=== PATIENT | male | born 1950 | race Caucasian/White ===

== ENCOUNTER 2017-12-17 09:24 | Day surgery (SDC) | payer MEDICARE ==
[2017-12-16 14:25] VITALS: BMI 25.7
[2017-12-17 10:20] LABS: #Basophils 0.1 thou/uL (0.0-0.2); #Eosinphils 0.2 thou/uL (0.0-0.7); #Lymphocytes 3.2 thou/uL (1.20-3.40); #Neutrophils 10.8 thou/uL (1.40-6.50); %Basophils 0.7 % (0.0-1.0); %Eosinophils 1.1 % (0.0-10.0); %Lymphocytes 20.9 % (21.0-51.0); %Monocytes 6.6 % (0.0-10.0); %Neutrophils 70.8 % (42.0-75.0); Mean Corpuscular HGB CONC 34.6 g/dL (32.0-36.0); Mean Corpuscular Hemoglobin 35.3 pg (27.0-31.0); Mean Platelet Volume 6.3 fL (7.4-10.4); Platelet Count 292 thou/uL (130-400); RBC Distribution Width 12.2 % (11.5-14.5); Red Blood Cell (RBC) Count 4.25 mill/uL (4.70-6.10); White Blood Cell (WBC) Count 15.2 thou/uL (4.8-10.8)
[2017-12-17 10:27] LABS: INR-International Normal Ratio 1.6; PTT 33.9 SEC (22.9-36.1); Prothrombin Time 19.8 SEC (12.0-14.7)
[2017-12-17 10:33] LABS: Anion Gap 13 mmol/L (10-20); BUN (Urea Nitrogen) 25 mg/dL (8.4-25.7); Calc. Creatinine Clearance 81 mL/min (70-130); Calcium 9.3 mg/dL (7.8-10.44); Carbon Dioxide 24 mmol/L (23-31); Chloride 105 mmol/L (98-107); Estimated GFR-MDRD 70; Glucose 93 mg/dL (80-115); Potassium 4.2 mmol/L (3.5-5.1); Sodium 138 mmol/L (136-145)
[2017-12-17] MEDS ORDERED: Midazolam HCl 2 mg/2 ml Vial ONE (11:33)
[2017-12-17] MEDS ORDERED: Diprivan 20 ML ONE (11:33)
[2017-12-17] MEDS ORDERED: Propofol 200 MG/20 ML VIAL ONE (16:02)
--- NOTE | 2017-12-17 17:13 | ECHO ---
DATE OF SERVICE: 12/17/17 PREPROCEDURE: Aortic stenosis. PROCEDURES PERFORMED: Transesophageal echo. SUMMARY: A full transesophageal echo was done for evaluation of aortic stenosis. He had a transthoracic echo that showed heavily calcified aortic valve with minimal opening, but hemodynamic measurements were no t suggestive of severe stenosis, so due to the discrepancy of the findings, a transesophageal echo wa s programmed. Sedation was achieved by the Anesthesia Department. Please see their notes for detail s). After adequate sedation was achieved, transesophageal probe was inserted into the mouth into the esophagus with no issues whatsoever. We then obtained in multiplanar views. Left ventricle is normal size and normal wall thickness. Systolic function is normal, EF estimated a t 50-55%. Left ventricle is normal size and right atrium is actually small. No mass or thrombus. The left atrium is normal size. Left atrial appendage is small without any mass or thrombus and norm al velocities. Interatrial septum is intact by color Doppler or by agitated saline study. Aortic valve is heavily calcified. The right coronary cusp is immobile and very calcified. The left c oronary cusp in the noncoronary cusp are highly mobile and normal in appearance. No significant sten osis is seen. Mitral valve is structurally normal with mild mitral annular calcification. No stenosis, mild mitral regurgitation. Tricuspid valve is structurally normal. There is mild TR. Pulmonary valve is structurally normal, no stenosis or regurgitation. Thoracic aorta and descending aorta is normal caliber with no aneurysmal dilatation or dissection mason jeff. There is mild atherosclerotic plaque, grade II/. IMPRESSION: 1. Normal systolic function, EF of 50-55%. 2. Intact interatrial septum by agitated saline study. 3. MAC with mild MR. 4. Mild TR. 5. 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 6. Calcified and immobile right coronary cusp, but normal functioning left and noncoronary cusps, no significant aortic valve stenosis or regurgitation.
== END 2017-12-17 14:06 | disposition home or self-care (01) ==
LOC: CCL 09:24 → EEVIPCON 09:24 → CCL 14:06
PROVIDERS: ATTEND Internal Medicine Cardiovascular Disease
DX: I35.0 Nonrheumatic aortic (valve) stenosis (principal); Z88.1 Allergy status to other antibiotic agents; Z88.8 Allergy status to other drugs, medicaments and biological substances; Z91.013 Allergy to seafood; Z91.041 Radiographic dye allergy status
CPT/HCPCS: 80048; 80195; 85025; 85610; 85730; 93312; J2250; J2704

== ENCOUNTER 2021-04-14 17:00 | Inpatient (IN) | payer MEDICARE, OTHER ==
[~2021-04-14 17:00] MED LIST: Metoprolol Tartrate 5 MG/5 ML VIAL ONE; Nitroglycerin 50 MG/250 ML BOT ONE
[2021-04-14] MEDS ORDERED: Metoprolol Tartrate 5 MG/5 ML VIAL ONE (17:18)
[2021-04-14 17:21] LABS: #Basophils 0.2 thou/uL (0.0-0.2); #Eosinphils 0.2 thou/uL (0.0-0.7); #Lymphocytes 4.3 thou/uL (1.20-3.40); #Monocytes 1.2 thou/uL (0.11-0.59); #Neutrophils 6.3 thou/uL (1.40-6.50); %Basophils 1.3 % (0.0-1.0); %Eosinophils 1.8 % (0.0-10.0); %Lymphocytes 35.1 % (21.0-51.0); %Monocytes 10.2 % (0.0-10.0); %Neutrophils 51.7 % (42.0-75.0); Hemoglobin 14.3 g/dL (14.0-18.0); Mean Corpuscular HGB CONC 34.9 g/dL (32.0-36.0); Mean Corpuscular Hemoglobin 34.7 pg (27.0-31.0); Mean Corpuscular Volume 99.4 fL (78.0-98.0); Mean Platelet Volume 6.6 fL (7.4-10.4); Platelet Count 374 thou/uL (130-400); RBC Distribution Width 11.4 % (11.5-14.5); Red Blood Cell (RBC) Count 4.12 mill/uL (4.70-6.10); White Blood Cell (WBC) Count 12.2 thou/uL (4.8-10.8)
[2021-04-14 17:28] LABS: INR-International Normal Ratio 1.1; Prothrombin Time 14.8 sec (12.0-14.7)
[2021-04-14 17:33] LABS: PTT 125.3 sec (22.9-36.1)
[2021-04-14 17:44] LABS: ALT (SGPT) 32 U/L (8-55); AST (SGOT) 28 U/L (5-34); Albumin 4.3 g/dL (3.4-4.8); Alkaline Phosphatase 114 U/L (40-110); Anion Gap 18 mmol/L (10-20); BUN (Urea Nitrogen) 27 mg/dL (8.4-25.7); Bilirubin, Total 0.5 mg/dL (0.2-1.2); CK (CPK) 156 U/L (30-200); Calc. Creatinine Clearance 0 mL/min (70-130); Calcium 9.8 mg/dL (7.8-10.44); Carbon Dioxide 20 mmol/L (23-31); Chloride 101 mmol/L (98-107); Globulin 3.1 g/dL (2.4-3.5); Glucose 97 mg/dL (80-115); Potassium 4.7 mmol/L (3.5-5.1); Protein, Total 7.4 g/dL (5.8-8.1); Sodium 134 mmol/L (136-145)
[2021-04-14] MEDS ORDERED: Communication Order-Pharmacy FS SCH (17:45)
[2021-04-14] MEDS ORDERED: Morphine 2 MG/ML VIAL ONE (19:09)
[2021-04-14 19:14] LABS: SARS-CoV-2 NAA Rapid Test Not Detected (NotDetected)
[2021-04-14] MEDS ORDERED: Ondansetron PF 4 MG/2 ML Vial IVP PRN (19:36)
[2021-04-14] MEDS ORDERED: Guaifenesin DM 100-10/5 ML UDCUP PO PRN (19:36)
[2021-04-14] MEDS ORDERED: Bisacodyl 5 MG TAB PO PRN (19:36)
[2021-04-14] MEDS ORDERED: Lorazepam 1 MG TAB PO PRN (19:38)
[2021-04-14] MEDS ORDERED: hydrALAZINE 20 MG/ML VIAL SLOW IVP PRN (19:39)
[2021-04-14] MEDS ORDERED: Morphine 2 MG/ML VIAL SLOW IVP PRN (19:39)
[2021-04-14] MEDS ORDERED: Nitroglycerin 50 MG/250 ML BOT 250 ML IVPB SCH (19:45)
[2021-04-14] MEDS ORDERED: Heparin 25,000 units/D5W 500 ML IV SCH (20:15)
[2021-04-14] MEDS: HYDROcodone/Acetaminophen 5/325 mg Tablet PO PRN (20:15)
[2021-04-14 21:16] LABS: Troponin I 6.205 ng/mL (< 0.028)
[2021-04-14] MEDS: Sodium Chloride 0.9% 1,000 ML IV SCH (21:23)
[2021-04-14] MEDS ORDERED: Famotidine 20 MG TAB PO SCH (22:00)
[2021-04-14] MEDS: Metoprolol Tartrate 25 MG TAB PO SCH (22:27)
[2021-04-14] MEDS: Rosuvastatin 20 MG TAB PO SCH (22:28)
[2021-04-14] MEDS: Cefepime 1 GM in Sodium Chloride 0.9% 100 ML IVPB SCH (22:29)
[2021-04-14] MEDS: Fentanyl 100 MCG/2 ML VIAL SLOW IVP PRN (22:40)
[2021-04-14 23:32] LABS: Troponin I 13.901 ng/mL (< 0.028)
[2021-04-15] MEDS: Fentanyl 100 MCG/2 ML VIAL SLOW IVP PRN ×2 (01:00→06:44)
[2021-04-15] MEDS: Zolpidem Tartrate 5 MG TAB PO PRN ×2 (01:00→21:39)
[2021-04-15 04:38] LABS: Band 5 % (5-11); Eosinophils 5 % (0-10); Hemoglobin 13.1 g/dL (14.0-18.0); Lymphocytes 38 % (21-51); MDiff Complete? YES; Mean Corpuscular HGB CONC 34.7 g/dL (32.0-36.0); Mean Corpuscular Hemoglobin 34.8 pg (27.0-31.0); Mean Platelet Volume 6.7 fL (7.4-10.4); Monocytes 8 % (0-10); Neutrophil 44 % (42-75); Platelet Count 340 thou/uL (130-400); Platelet Morphology Comment Appears Adequate; Platelet Satellitism MODERATE; RBC Distribution Width 11.7 % (11.5-14.5); Red Blood Cell (RBC) Count 3.78 mill/uL (4.70-6.10); White Blood Cell (WBC) Count 9.3 thou/uL (4.8-10.8)
[2021-04-15] MEDS ORDERED: Hydrocortisone Sod Succ/PF 100 mg/2 ml Vial IVP SCH (06:45)
[2021-04-15 07:52] LABS: #Basophils 0.1 thou/uL (0.0-0.2); #Eosinphils 0.2 thou/uL (0.0-0.7); #Lymphocytes 4.4 thou/uL (1.20-3.40); #Monocytes 1.3 thou/uL (0.11-0.59); %Basophils 1.3 % (0.0-1.0); %Eosinophils 2.2 % (0.0-10.0); %Lymphocytes 40.1 % (21.0-51.0); %Monocytes 11.3 % (0.0-10.0); Mean Corpuscular HGB CONC 34.7 g/dL (32.0-36.0); Mean Corpuscular Hemoglobin 34.9 pg (27.0-31.0); Mean Platelet Volume 6.8 fL (7.4-10.4); Platelet Count 377 thou/uL (130-400); RBC Distribution Width 11.6 % (11.5-14.5); Red Blood Cell (RBC) Count 3.73 mill/uL (4.70-6.10); White Blood Cell (WBC) Count 11.1 thou/uL (4.8-10.8)
[2021-04-15 08:08] LABS: Anion Gap 14 mmol/L (10-20); BUN (Urea Nitrogen) 22 mg/dL (8.4-25.7); Calc. Creatinine Clearance 56 mL/min (70-130); Calcium 9.1 mg/dL (7.8-10.44); Carbon Dioxide 24 mmol/L (23-31); Chloride 103 mmol/L (98-107); Glucose 112 mg/dL (80-115); Potassium 4.6 mmol/L (3.5-5.1); Sodium 136 mmol/L (136-145)
[2021-04-15] MEDS ORDERED: Lidocaine 1% (PF) 30 ML VIAL ONE (08:35)
[2021-04-15] MEDS ORDERED: Midazolam HCl 2 mg/2 ml Vial ONE (08:52)
[2021-04-15] MEDS ORDERED: Fentanyl 100 MCG/2 ML VIAL ONE (08:52)
[2021-04-15] MEDS ORDERED: Aspirin Chewable 81 MG TAB PO SCH (09:00)
[2021-04-15] MEDS ORDERED: SIROLIMUS 0.5 MG PO SCH (09:00)
[2021-04-15] MEDS ORDERED: Lisinopril 10 MG TAB PO SCH (09:00)
[2021-04-15] MEDS ORDERED: Iopamidol 370 76% 50 ML VIAL FS ONE (09:08)
[2021-04-15] MEDS ORDERED: Iopamidol 370 76% 100 ML VIAL ONE (09:08)
[2021-04-15] MEDS ORDERED: Lorazepam 1 MG TAB PO PRN (09:13)
[2021-04-15] MEDS ORDERED: Heparin 10,000 UNITS/ 10 ML VIAL ONE ×2 (09:47→10:10)
[2021-04-15] MEDS ORDERED: Nitroglycerin 100MG/250ML BOT 250 ML ONE (09:48)
[2021-04-15] MEDS ORDERED: TICAGRELOR 90 MG TABLET ONE (09:57)
[2021-04-15] MEDS ORDERED: Nitroglycerin 0.4 MG TAB (25 Tab Bottle) SL PRN (10:20)
[2021-04-15] MEDS ORDERED: TICAGRELOR 90 MG TABLET PO SCH (10:30)
[2021-04-15] MEDS: Aspirin 81 mg Enteric Coated Tablet PO SCH (11:25)
[2021-04-15] MEDS: Famotidine 20 MG TAB PO SCH ×2 (11:25→21:24)
[2021-04-15] MEDS: Metoprolol Tartrate 25 MG TAB PO SCH ×2 (11:25→21:24)
[2021-04-15] MEDS: HYDROcodone/Acetaminophen 5/325 mg Tablet PO PRN (11:26)
[2021-04-15] MEDS: Cefepime 1 GM in Sodium Chloride 0.9% 100 ML IVPB SCH ×2 (11:27→21:25)
[2021-04-15] MEDS: Sodium Chloride 0.9% 1,000 ML IV SCH (11:33)
[2021-04-15] MEDS ORDERED: Calcium Carbonate 500 MG ChewTAB PO PRN (18:19)
[2021-04-15] MEDS: TICAGRELOR 90 MG TABLET PO SCH (21:25)
[2021-04-15] MEDS: Rosuvastatin 20 MG TAB PO SCH (21:27)
[2021-04-16 03:50] LABS: Hemoglobin 13.1 g/dL (14.0-18.0); Mean Corpuscular HGB CONC 35.1 g/dL (32.0-36.0); Mean Corpuscular Hemoglobin 35.1 pg (27.0-31.0); Mean Platelet Volume 7.4 fL (7.4-10.4); Platelet Count 296 thou/uL (130-400); RBC Distribution Width 11.6 % (11.5-14.5); Red Blood Cell (RBC) Count 3.73 mill/uL (4.70-6.10); White Blood Cell (WBC) Count 8.6 thou/uL (4.8-10.8)
[2021-04-16 04:15] LABS: ALT (SGPT) 36 U/L (8-55); AST (SGOT) 71 U/L (5-34); Albumin 3.8 g/dL (3.4-4.8); Alkaline Phosphatase 91 U/L (40-110); Anion Gap 11 mmol/L (10-20); BUN (Urea Nitrogen) 20 mg/dL (8.4-25.7); Bilirubin, Total 0.6 mg/dL (0.2-1.2); Calc. Creatinine Clearance 60 mL/min (70-130); Calcium 9.2 mg/dL (7.8-10.44); Carbon Dioxide 25 mmol/L (23-31); Chloride 105 mmol/L (98-107); Globulin 2.7 g/dL (2.4-3.5); Glucose 80 mg/dL (80-115); Potassium 4.3 mmol/L (3.5-5.1); Protein, Total 6.5 g/dL (5.8-8.1); Sodium 137 mmol/L (136-145)
[2021-04-16 04:44] LABS: Eosinophils 2 % (0-10); Lymphocytes 44 % (21-51); MDiff Complete? YES; Monocytes 13 % (0-10); Neutrophil 38 % (42-75); Platelet Morphology Comment Appears Adequate; Platelet Satellitism MODERATE; Reactive Lymphocytes 3 % (0-10)
[2021-04-16] MEDS: Famotidine 20 MG TAB PO SCH ×2 (09:22→21:05)
[2021-04-16] MEDS: Aspirin 81 mg Enteric Coated Tablet PO SCH (09:22)
[2021-04-16] MEDS: TICAGRELOR 90 MG TABLET PO SCH ×2 (09:22→21:06)
[2021-04-16] MEDS: Cefepime 1 GM in Sodium Chloride 0.9% 100 ML IVPB SCH ×2 (09:23→22:25)
[2021-04-16] MEDS ORDERED: Lisinopril 10 MG TAB PO SCH (15:00)
[2021-04-16] MEDS: Rosuvastatin 20 MG TAB PO SCH (21:05)
[2021-04-17 07:17] VITALS: BMI 24.5
[2021-04-17 07:41] LABS: #Basophils 0.1 thou/uL (0.0-0.2); #Eosinphils 0.4 thou/uL (0.0-0.7); #Lymphocytes 3.9 thou/uL (1.20-3.40); #Monocytes 1.2 thou/uL (0.11-0.59); #Neutrophils 5.7 thou/uL (1.40-6.50); %Basophils 0.9 % (0.0-1.0); %Eosinophils 3.3 % (0.0-10.0); %Lymphocytes 34.3 % (21.0-51.0); %Monocytes 10.9 % (0.0-10.0); %Neutrophils 50.7 % (42.0-75.0); Hemoglobin 13.2 g/dL (14.0-18.0); Mean Corpuscular HGB CONC 35.4 g/dL (32.0-36.0); Mean Corpuscular Hemoglobin 35.4 pg (27.0-31.0); Mean Corpuscular Volume 99.8 fL (78.0-98.0); Mean Platelet Volume 6.4 fL (7.4-10.4); Platelet Count 359 thou/uL (130-400); RBC Distribution Width 11.8 % (11.5-14.5); Red Blood Cell (RBC) Count 3.72 mill/uL (4.70-6.10); White Blood Cell (WBC) Count 11.3 thou/uL (4.8-10.8)
[2021-04-17 07:57] LABS: Anion Gap 13 mmol/L (10-20); BUN (Urea Nitrogen) 26 mg/dL (8.4-25.7); Calc. Creatinine Clearance 67 mL/min (70-130); Calcium 9.1 mg/dL (7.8-10.44); Carbon Dioxide 21 mmol/L (23-31); Chloride 107 mmol/L (98-107); Glucose 90 mg/dL (80-115); Potassium 4.3 mmol/L (3.5-5.1); Sodium 137 mmol/L (136-145)
[2021-04-17] MEDS ORDERED: Polyethylene Glycol 3350 17 GM Packet PO PRN (08:31)
[2021-04-17] MEDS ORDERED: Lisinopril 2.5 MG TAB PO SCH (09:00)
[2021-04-17] MEDS: Famotidine 20 MG TAB PO SCH ×2 (09:04→20:28)
[2021-04-17] MEDS: TICAGRELOR 90 MG TABLET PO SCH ×2 (09:05→20:28)
[2021-04-17] MEDS: Aspirin 81 mg Enteric Coated Tablet PO SCH (09:06)
[2021-04-17] MEDS: Cefdinir 300 MG CAP PO SCH ×2 (10:19→20:28)
[2021-04-17] MEDS: Rosuvastatin 20 MG TAB PO SCH (20:28)
[2021-04-18 05:16] LABS: Anion Gap 12 mmol/L (10-20); BUN (Urea Nitrogen) 26 mg/dL (8.4-25.7); Calc. Creatinine Clearance 61 mL/min (70-130); Calcium 9.3 mg/dL (7.8-10.44); Carbon Dioxide 23 mmol/L (23-31); Chloride 105 mmol/L (98-107); Glucose 87 mg/dL (80-115); Potassium 4.2 mmol/L (3.5-5.1); Sodium 136 mmol/L (136-145)
[2021-04-18] MEDS: Famotidine 20 MG TAB PO SCH ×2 (08:18→20:37)
[2021-04-18] MEDS: Cefdinir 300 MG CAP PO SCH ×2 (08:18→20:37)
[2021-04-18] MEDS: TICAGRELOR 90 MG TABLET PO SCH ×2 (08:18→20:37)
[2021-04-18] MEDS: Aspirin 81 mg Enteric Coated Tablet PO SCH (08:18)
[2021-04-18] MEDS ORDERED: Lisinopril 5 MG TAB PO SCH (09:00)
[2021-04-18] MEDS: Rosuvastatin 20 MG TAB PO SCH (20:37)
[2021-04-19 07:22] VITALS: BP 107/75; TEMP 98.3
[2021-04-19] MEDS: Cefdinir 300 MG CAP PO SCH (08:27)
[2021-04-19] MEDS: Famotidine 20 MG TAB PO SCH (08:27)
[2021-04-19] MEDS: Aspirin 81 mg Enteric Coated Tablet PO SCH (08:27)
[2021-04-19] MEDS: TICAGRELOR 90 MG TABLET PO SCH (08:27)
[2021-04-19] MEDS ORDERED: Lisinopril 10 MG TAB PO SCH ×2 (09:00)
[2021-04-19] MEDS ORDERED: Lisinopril 5 MG TAB PO SCH ×2 (09:00)
== END 2021-04-19 09:30 | disposition home or self-care (01) | DRG 280 ==
LOC: ERS 17:00 → CCU 18:33 → 2NO 04-17 10:20
PROVIDERS: ADMIT Student in an Organized Health Care Education/Training Program; ATTEND Internal Medicine
DX: I21.09 ST elevation (STEMI) myocardial infarction involving other coronary artery of anterior wall (principal); J18.9 Pneumonia, unspecified organism; Z94.84 Stem cells transplant status; D84.821 Immunodeficiency due to drugs; N17.9 Acute kidney failure, unspecified; E87.1 Hypo-osmolality and hyponatremia; E87.2 Acidosis; I50.22 Chronic systolic (congestive) heart failure; Z20.822 Contact with and (suspected) exposure to COVID-19; E78.5 Hyperlipidemia, unspecified; I35.0 Nonrheumatic aortic (valve) stenosis; T45.1X5A Adverse effect of antineoplastic and immunosuppressive drugs, initial encounter; F41.1 Generalized anxiety disorder; I11.0 Hypertensive heart disease with heart failure; Z88.1 Allergy status to other antibiotic agents; Z88.5 Allergy status to narcotic agent; Z88.8 Allergy status to other drugs, medicaments and biological substances; Z85.46 Personal history of malignant neoplasm of prostate; Z91.013 Allergy to seafood; Z86.718 Personal history of other venous thrombosis and embolism; Z79.01 Long term (current) use of anticoagulants
CPT/HCPCS: 0240U; 36415; 71045; 76942; 80048; 80053; 82550; 82553; 83605; 84443; 84484; 85007; 85025; 85027; 85347; 85610; 85730; 87040; 92928; 93005; 93010; 93306; 93454; 93798; 96365; 96366; 96375; 99152; 99153; C9600; J0692; J1644; J1720; J2001; J2250; J2270; J2405; J3010; J3490; Q9967

== ENCOUNTER 2023-09-10 22:35 | Observation (INO) | payer MEDICARE ==
[2023-09-11 01:28] VITALS: BMI 24.8
[2023-09-11] MEDS ORDERED: Ondansetron PF 4 MG/2 ML Vial IVP PRN (02:12)
[2023-09-11] MEDS ORDERED: Nitroglycerin 0.4 MG TAB (25 Tab Bottle) SL PRN (02:12)
[2023-09-11] MEDS ORDERED: Acetaminophen 325 MG TAB PO PRN (02:12)
[2023-09-11] MEDS ORDERED: Ondansetron ODT 4 MG TAB PO PRN (02:12)
[2023-09-11] MEDS ORDERED: Aspirin Chewable 81 MG TAB PO SCH ×2 (02:30→09:00)
[2023-09-11 02:45] LABS: #Basophils 0.1 thou/uL (0.0-0.2); #Eosinphils 0.3 thou/uL (0.0-0.7); #Monocytes 1.2 thou/uL (0.11-0.59); #Neutrophils 5.1 thou/uL (1.40-6.50); %Eosinophils 2.8 % (0.0-10.0); %Lymphocytes 36.1 % (21.0-51.0); %Monocytes 11.1 % (0.0-10.0); %Neutrophils 48.7 % (42.0-75.0); Hematocrit 47.6 % (42.0-52.0); Hemoglobin 16.1 g/dL (14.0-18.0); Mean Corpuscular HGB CONC 33.8 g/dL (32.0-36.0); Mean Corpuscular Hemoglobin 32.5 pg (27.0-31.0); Mean Corpuscular Volume 96.2 fl (78.0-98.0); Mean Platelet Volume 10.3 fL (7.4-10.4); Platelet Count 256 10x3/uL (130-400); RBC Distribution Width 15.1 % (11.5-14.5); Red Blood Cell (RBC) Count 4.95 mill/uL (4.70-6.10); White Blood Cell (WBC) Count 10.5 10x3/uL (4.8-10.8)
[2023-09-11 03:08] LABS: ALT (SGPT) 23 U/L (8-55); AST (SGOT) 25 U/L (5-34); Albumin 4.4 g/dL (3.4-4.8); Alkaline Phosphatase 89 U/L (40-110); Anion Gap 16 mmol/L (10-20); BUN (Urea Nitrogen) 19 mg/dL (8.4-25.7); Bilirubin, Total 0.7 mg/dL (0.2-1.2); Calc. Creatinine Clearance 52 mL/min (70-130); Calcium 9.4 mg/dL (7.8-10.44); Carbon Dioxide 26 mmol/L (23-31); Chloride 103 mmol/L (98-107); Estimated GFR 51; Globulin 2.7 g/dL (2.4-3.5); Glucose 91 mg/dL (83-110); Protein, Total 7.1 g/dL (5.8-8.1); Sodium 140 mmol/L (136-145)
[2023-09-11 03:29] LABS: Cardiac Risk 4.5 (Less than 4.5)
[2023-09-11] MEDS ORDERED: Sodium Chloride 0.9% 1,000 ML IV SCH (03:30)
[2023-09-11 06:24] LABS: Troponin I 0.064 ng/mL (< 0.028)
[2023-09-11] MEDS ORDERED: Lisinopril 5 MG TAB PO SCH (09:00)
[2023-09-11] MEDS ORDERED: TICAGRELOR 90 MG TABLET PO SCH (09:00)
[2023-09-11 10:32] LABS: Troponin I 0.048 ng/mL (< 0.028)
[2023-09-11 15:49] VITALS: BP 129/82; TEMP 98.1
[2023-09-11] MEDS ORDERED: Regadenoson 0.4 MG/5 ML SYRINGE ONE (16:11)
== END 2023-09-11 17:14 | disposition home or self-care (01) ==
LOC: 2SW 09-11 01:15
PROVIDERS: ADMIT Student in an Organized Health Care Education/Training Program; ATTEND Student in an Organized Health Care Education/Training Program
DX: R07.9 Chest pain, unspecified (principal); I25.10 Atherosclerotic heart disease of native coronary artery without angina pectoris; I25.2 Old myocardial infarction; J84.10 Pulmonary fibrosis, unspecified; I10 Essential (primary) hypertension; N17.9 Acute kidney failure, unspecified; D75.1 Secondary polycythemia; E78.5 Hyperlipidemia, unspecified; Z87.19 Personal history of other diseases of the digestive system; Z86.718 Personal history of other venous thrombosis and embolism; Z90.89 Acquired absence of other organs; Z88.1 Allergy status to other antibiotic agents; Z91.013 Allergy to seafood; Z79.899 Other long term (current) drug therapy; Z98.890 Other specified postprocedural states; Z98.41 Cataract extraction status, right eye; Z98.42 Cataract extraction status, left eye; F17.210 Nicotine dependence, cigarettes, uncomplicated; Z95.5 Presence of coronary angioplasty implant and graft; Z86.711 Personal history of pulmonary embolism
CPT/HCPCS: 78452; 80053; 80061; 84484 ×2; 85025; 93017; 93306; A9502; G0378; J2785; 36415; J7050

== ENCOUNTER 2023-09-24 17:34 | Inpatient (IN) | payer MEDICARE, SELFPAY ==
[~2023-09-24 17:34] MED LIST changes: +Adenosine 6 MG/2 ML VIAL ONE; +Heparin 10,000 UNITS/ 10 ML VIAL ONE; +Iopamidol 370 76% 100 ML VIAL ONE; +Lidocaine 1% (PF) 30 ML VIAL ONE; -Metoprolol Tartrate 5 MG/5 ML VIAL ONE; +Nitroglycerin 50 MG/250 ML BOT 250 ML ONE; -Nitroglycerin 50 MG/250 ML BOT ONE; +Verapamil 5 MG/2 ML VIAL ONE
[2023-09-24] MEDS ORDERED: Heparin 25,000 units/D5W 500 ML ONE (17:47)
[2023-09-24] MEDS ORDERED: Nitroglycerin 50 MG/250 ML BOT 250 ML ONE (17:47)
[2023-09-24] MEDS ORDERED: Midazolam HCl 2 mg/2 ml Vial ONE (18:13)
[2023-09-24] MEDS ORDERED: fentaNYL 50 mcg/mL 1 mL Vial ONE (18:14)
[2023-09-24] MEDS ORDERED: Atropine Sulfate 1 mg/10 ml Syringe ONE (18:33)
[2023-09-24] MEDS ORDERED: PHENYLEPHRINE-NS 100 MCG/ML 10 ML SYRINGE ONE (18:33)
[2023-09-24] MEDS ORDERED: TICAGRELOR 90 MG TABLET ONE (19:11)
[2023-09-24] MEDS ORDERED: Milk Of Magnesia 30 ML UDCUP PO PRN (19:23)
[2023-09-24] MEDS ORDERED: Adenosine 6 MG/2 ML VIAL ONE (19:25)
[2023-09-24] MEDS ORDERED: Verapamil 5 MG/2 ML VIAL ONE (19:26)
[2023-09-24] MEDS ORDERED: Heparin 10,000 UNITS/ 10 ML VIAL ONE (19:26)
[2023-09-24] MEDS ORDERED: Lidocaine 1% (PF) 30 ML VIAL ONE (19:26)
[2023-09-24] MEDS: Sodium Chloride 0.9% 1,000 ML IV SCH (20:00)
[2023-09-24] MEDS ORDERED: Fentanyl 100 MCG/2 ML VIAL SLOW IVP PRN (20:00)
[2023-09-24] MEDS ORDERED: Nitroglycerin 0.4 MG TAB (25 Tab Bottle) SL PRN (20:14)
[2023-09-24] MEDS ORDERED: Magnesium 2 GM/50 ML(in water) 2 GM in Premix 1 BAG IVPB SCH (20:15)
[2023-09-24] MEDS ORDERED: niCARdipine 25 MG in Sodium Chloride 0.9% 250 ML 250 ML IVPB SCH (20:15)
[2023-09-24] MEDS ORDERED: Calcium Carbonate 500 MG ChewTAB PO PRN (20:17)
[2023-09-24] MEDS ORDERED: Ondansetron ODT 4 MG TAB PO PRN (20:17)
[2023-09-24] MEDS ORDERED: Acetaminophen 325 MG TAB PO PRN (20:17)
[2023-09-24] MEDS ORDERED: Ondansetron PF 4 MG/2 ML Vial IVP PRN (20:17)
[2023-09-24] MEDS: fentaNYL 50 mcg/mL 1 mL Vial SLOW IVP PRN (20:29)
[2023-09-24] MEDS ORDERED: Lorazepam 0.5 MG TAB PO SCH (20:30)
[2023-09-24] MEDS: Acetaminophen/Codeine 30-300mg Tablet PO PRN (20:34)
[2023-09-24] MEDS ORDERED: Labetalol HCl 100 MG/20 ML VIAL SLOW IVP PRN (20:40)
[2023-09-24] MEDS ORDERED: Atorvastatin Calcium 40 MG TAB PO SCH (21:00)
[2023-09-24] MEDS ORDERED: Famotidine 20 MG TAB PO SCH (21:00)
[2023-09-24] MEDS: TICAGRELOR 90 MG TABLET PO SCH (21:14)
[2023-09-24] MEDS: Atorvastatin Calcium 40 MG TAB PO SCH (21:27)
[2023-09-24] MEDS: Metoprolol Tartrate 25 MG TAB PO SCH (21:27)
[2023-09-24] MEDS: Lisinopril 2.5 MG TAB PO SCH (21:27)
[2023-09-24 21:55] VITALS: BMI 24.7
[2023-09-25] MEDS: Acetaminophen/Codeine 30-300mg Tablet PO PRN ×2 (00:45→05:54)
[2023-09-25] MEDS: fentaNYL 50 mcg/mL 1 mL Vial SLOW IVP PRN ×3 (00:46→05:53)
[2023-09-25 03:40] LABS: #Basophils 0.1 thou/uL (0.0-0.2); #Eosinphils 0.2 thou/uL (0.0-0.7); #Monocytes 0.9 thou/uL (0.11-0.59); #Neutrophils 6.2 thou/uL (1.40-6.50); %Basophils 0.7 % (0.0-1.0); %Lymphocytes 23.8 % (21.0-51.0); %Monocytes 9.7 % (0.0-10.0); %Neutrophils 63.5 % (42.0-75.0); Hematocrit 44.6 % (42.0-52.0); Hemoglobin 15.5 g/dL (14.0-18.0); Mean Corpuscular HGB CONC 34.8 g/dL (32.0-36.0); Mean Corpuscular Volume 95.1 fl (78.0-98.0); Mean Platelet Volume 9.8 fL (7.4-10.4); Platelet Count 219 10x3/uL (130-400); RBC Distribution Width 15.5 % (11.5-14.5); Red Blood Cell (RBC) Count 4.69 mill/uL (4.70-6.10); White Blood Cell (WBC) Count 9.7 10x3/uL (4.8-10.8)
[2023-09-25 04:09] LABS: ALT (SGPT) 23 U/L (8-55); AST (SGOT) 45 U/L (5-34); Albumin 4.2 g/dL (3.4-4.8); Alkaline Phosphatase 88 U/L (40-110); Anion Gap 13 mmol/L (10-20); BUN (Urea Nitrogen) 18 mg/dL (8.4-25.7); Bilirubin, Total 0.6 mg/dL (0.2-1.2); Calc. Creatinine Clearance 62 mL/min (70-130); Calcium 8.6 mg/dL (7.8-10.44); Carbon Dioxide 22 mmol/L (23-31); Chloride 103 mmol/L (98-107); Estimated GFR 64; Globulin 2.4 g/dL (2.4-3.5); Glucose 106 mg/dL (83-110); Potassium 4.4 mmol/L (3.5-5.1); Protein, Total 6.6 g/dL (5.8-8.1); Sodium 134 mmol/L (136-145)
[2023-09-25] MEDS: Sodium Chloride 0.9% 1,000 ML IV SCH (05:43)
[2023-09-25] MEDS: Aspirin 81 mg Enteric Coated Tablet PO SCH (08:52)
[2023-09-25] MEDS: Metoprolol Tartrate 25 MG TAB PO SCH ×2 (08:52→20:29)
[2023-09-25] MEDS: TICAGRELOR 90 MG TABLET PO SCH ×2 (08:52→20:31)
[2023-09-25] MEDS: Lisinopril 2.5 MG TAB PO SCH (20:29)
[2023-09-25] MEDS: Atorvastatin Calcium 40 MG TAB PO SCH (20:31)
[2023-09-26 04:15] LABS: #Basophils 0.1 thou/uL (0.0-0.2); #Eosinphils 0.3 thou/uL (0.0-0.7); #Monocytes 1.1 thou/uL (0.11-0.59); #Neutrophils 4.5 thou/uL (1.40-6.50); %Basophils 0.7 % (0.0-1.0); %Lymphocytes 29.8 % (21.0-51.0); %Monocytes 12.4 % (0.0-10.0); %Neutrophils 52.7 % (42.0-75.0); Hematocrit 42.4 % (42.0-52.0); Hemoglobin 14.3 g/dL (14.0-18.0); Mean Corpuscular HGB CONC 33.7 g/dL (32.0-36.0); Mean Corpuscular Hemoglobin 32.7 pg (27.0-31.0); Mean Platelet Volume 10.9 fL (7.4-10.4); Platelet Count 131 10x3/uL (130-400); RBC Distribution Width 15.6 % (11.5-14.5); Red Blood Cell (RBC) Count 4.37 mill/uL (4.70-6.10); White Blood Cell (WBC) Count 8.6 10x3/uL (4.8-10.8)
[2023-09-26 04:46] LABS: Anion Gap 15 mmol/L (10-20); BUN (Urea Nitrogen) 27 mg/dL (8.4-25.7); Calc. Creatinine Clearance 51 mL/min (70-130); Calcium 8.7 mg/dL (7.8-10.44); Carbon Dioxide 19 mmol/L (23-31); Chloride 106 mmol/L (98-107); Estimated GFR 49; Glucose 83 mg/dL (83-110); Magnesium 2.2 mg/dL (1.6-2.6); Potassium 4.4 mmol/L (3.5-5.1); Sodium 136 mmol/L (136-145)
[2023-09-26 07:18] LABS: Burr Cells SLIGHT = 2-5 cells HPF (0-1); CellaVision Operator ID LAB.GE; Platelet Adequacy Comment Platelets Normal; Polychromasia SLIGHT = 2-3 cells HPF (0-2)
[2023-09-26] MEDS: Metoprolol Tartrate 25 MG TAB PO SCH (08:31)
[2023-09-26] MEDS: Aspirin 81 mg Enteric Coated Tablet PO SCH (08:32)
[2023-09-26] MEDS: TICAGRELOR 90 MG TABLET PO SCH (08:32)
[2023-09-26] MEDS ORDERED: Cholecalciferol 1,000 UNITS (25 MCG) TAB PO SCH (09:00)
[2023-09-26] MEDS ORDERED: CO Q-10 CAPSULE 100 MG PO SCH (09:00)
[2023-09-26 11:33] VITALS: TEMP 98.2
[2023-09-26] MEDS ORDERED: Sodium Chloride 0.9% 1,000 ML IV SCH (11:45)
[2023-09-26 16:27] VITALS: BP 132/86
== END 2023-09-26 16:55 | disposition home or self-care (01) | DRG 321 ==
LOC: ERS 17:34 → CCU 18:09 → SDC/OP 18:16 → CCU 19:56 → 2SW 09-25 07:56
PROVIDERS: ADMIT Internal Medicine Cardiovascular Disease; ATTEND Internal Medicine
PROC: 02703DZ Dilation of Coronary Artery, One Artery with Intraluminal Device, Percutaneous Approach (ICD-10-PCS; principal; 2023-09-24)
PROC: 4A023N7 Measurement of Cardiac Sampling and Pressure, Left Heart, Percutaneous Approach (ICD-10-PCS; 2023-09-24)
PROC: B2151ZZ Fluoroscopy of Left Heart using Low Osmolar Contrast (ICD-10-PCS; 2023-09-24)
PROC: B2111ZZ Fluoroscopy of Multiple Coronary Arteries using Low Osmolar Contrast (ICD-10-PCS; 2023-09-24)
DX: I25.110 Atherosclerotic heart disease of native coronary artery with unstable angina pectoris (principal); I21.4 Non-ST elevation (NSTEMI) myocardial infarction; I16.1 Hypertensive emergency; E87.1 Hypo-osmolality and hyponatremia; E78.5 Hyperlipidemia, unspecified; N40.0 Benign prostatic hyperplasia without lower urinary tract symptoms; I12.9 Hypertensive chronic kidney disease with stage 1 through stage 4 chronic kidney disease, or unspecified chronic kidney disease; N18.30 Chronic kidney disease, stage 3 unspecified; E83.42 Hypomagnesemia; J84.10 Pulmonary fibrosis, unspecified; I35.0 Nonrheumatic aortic (valve) stenosis; I07.1 Rheumatic tricuspid insufficiency; I37.1 Nonrheumatic pulmonary valve insufficiency; Z88.1 Allergy status to other antibiotic agents; Z91.013 Allergy to seafood; Z79.899 Other long term (current) drug therapy; Z86.73 Personal history of transient ischemic attack (TIA), and cerebral infarction without residual deficits; Z98.890 Other specified postprocedural states; Z98.41 Cataract extraction status, right eye; Z98.42 Cataract extraction status, left eye; Z90.79 Acquired absence of other genital organ(s); Z87.891 Personal history of nicotine dependence; Z80.9 Family history of malignant neoplasm, unspecified
CPT/HCPCS: 36415; 80048; 80053; 83735; 85025; 85347; 92928; 92978; 93005; 93010; 93454; 93798; 99152; 99153; C1753; C1769; C1874; C1887; C1894; C9600; J0153; J0461; J1644; J2001; J2250; J2405; J3010; J3475; J7050; Q9967

== ENCOUNTER 2024-05-30 21:37 | Inpatient (IN) | payer MEDICARE ==
[2024-05-30] MEDS ORDERED: Ondansetron PF 4 MG/2 ML Vial IVP PRN (22:38)
[2024-05-30] MEDS ORDERED: Nitroglycerin 0.4 MG TAB (25 Tab Bottle) SL PRN (22:38)
[2024-05-30 22:51] LABS: #Basophils 0.06 10x3/uL (0.0-0.2); %Basophils 0.6 % (0.0-1.0); %Eosinophils 2.6 % (0.0-10.0); %Lymphocytes 48.2 % (21.0-51.0); %Monocytes 10.5 % (0.0-10.0); Hematocrit 40.4 % (42.0-52.0); Hemoglobin 14.3 g/dL (14.0-18.0); Mean Corpuscular HGB CONC 35.4 g/dL (32.0-36.0); Mean Corpuscular Hemoglobin 32.9 pg (27.0-31.0); Mean Corpuscular Volume 92.9 fL (78.0-98.0); Mean Platelet Volume 8.6 fL (7.4-10.4); Platelet Count 360 10x3/uL (130-400); RBC Distribution Width 14.2 % (11.5-14.5); Red Blood Cell (RBC) Count 4.35 mill/uL (4.70-6.10)
[2024-05-30 23:08] LABS: ALT (SGPT) 31 U/L (8-55); AST (SGOT) 34 U/L (5-34); Albumin 3.6 g/dL (3.4-4.8); Alkaline Phosphatase 78 U/L (40-110); Anion Gap 14 mmol/L (10-20); BUN (Urea Nitrogen) 30 mg/dL (8.4-25.7); Bilirubin, Total 0.4 mg/dL (0.2-1.2); Calc. Creatinine Clearance 0 mL/min (70-130); Calcium 9.1 mg/dL (7.8-10.44); Carbon Dioxide 16 mmol/L (23-31); Chloride 109 mmol/L (98-107); Estimated GFR 57; Globulin 3.1 g/dL (2.4-3.5); Glucose 97 mg/dL (83-110); Potassium 4.2 mmol/L (3.5-5.1); Protein, Total 6.7 g/dL (5.8-8.1); Sodium 135 mmol/L (136-145)
[2024-05-30 23:13] LABS: Troponin I 0.016 ng/mL (< 0.028)
[2024-05-31 00:47] VITALS: BMI 24.4
[2024-05-31 03:10] LABS: #Basophils 0.08 10x3/uL (0.0-0.2); %Basophils 0.9 % (0.0-1.0); %Eosinophils 3.6 % (0.0-10.0); %Lymphocytes 48.1 % (21.0-51.0); %Monocytes 11.9 % (0.0-10.0); %Neutrophils 35.3 % (42.0-75.0); Hematocrit 40.3 % (42.0-52.0); Hemoglobin 14.2 g/dL (14.0-18.0); Mean Corpuscular HGB CONC 35.2 g/dL (32.0-36.0); Mean Corpuscular Hemoglobin 34.1 pg (27.0-31.0); Mean Corpuscular Volume 96.9 fL (78.0-98.0); Mean Platelet Volume 11.4 fL (7.4-10.4); Platelet Count 175 10x3/uL (130-400); RBC Distribution Width 14.4 % (11.5-14.5); Red Blood Cell (RBC) Count 4.16 mill/uL (4.70-6.10)
[2024-05-31 03:13] LABS: Actual Bicarbonate (HCO3v) 19.9 mEq/L (22-28); Base Excess -4.7 mEq/L (-2.0 to +3.0); Calcium, Ionized (venous) 1.19 mmol/L (1.16-1.32); Chloride (VBG) 105 mmol/L (98-106); Hematocrit-VBG 43 % (42.0-52.0); Hemoglobin (Hb) 14.6 g/dL (12.6-17.4); Potassium (VBG) 4.44 mmol/L (3.70-5.30); Sodium 138 mmol/L (133-146); pH (venous) 7.363 (7.32-7.43)
[2024-05-31 03:31] LABS: Anion Gap 15 mmol/L (10-20); BUN (Urea Nitrogen) 28 mg/dL (8.4-25.7); Calc. Creatinine Clearance 63 mL/min (70-130); Calcium 9.2 mg/dL (7.8-10.44); Carbon Dioxide 18 mmol/L (23-31); Chloride 111 mmol/L (98-107); Estimated GFR 65; Glucose 85 mg/dL (83-110); Potassium 4.5 mmol/L (3.5-5.1); Sodium 139 mmol/L (136-145)
[2024-05-31 03:33] LABS: Troponin I 0.012 ng/mL (< 0.028)
[2024-05-31] MEDS: Enoxaparin 40 MG (0.4 mL) SYRINGE SC SCH (10:04)
[2024-05-31] MEDS: Pantoprazole DR 40 MG TAB PO SCH (10:05)
[2024-05-31] MEDS: Aspirin Chewable 81 MG TAB PO SCH (10:05)
[2024-05-31] MEDS: TICAGRELOR 90 MG TABLET PO SCH (10:05)
[2024-05-31] MEDS ORDERED: Communication Order-Pharmacy FS SCH (13:00)
[2024-05-31] MEDS ORDERED: Heparin 10,000 UNITS/ 10 ML VIAL ONE (13:07)
[2024-05-31] MEDS ORDERED: Midazolam HCl 2 mg/2 ml Vial ONE (14:17)
[2024-05-31] MEDS ORDERED: fentaNYL 50 mcg/mL 1 mL Vial ONE (14:17)
[2024-05-31] MEDS: Sodium Chloride 0.9% 500 ML IV SCH (14:32)
[2024-05-31] MEDS ORDERED: Nitroglycerin 50 MG/250 ML BOT 250 ML ONE (14:50)
[2024-05-31] MEDS ORDERED: Iopamidol 370 76% 100 ML VIAL ONE (14:55)
[2024-05-31] MEDS ORDERED: PHENYLEPHRINE-NS 100 MCG/ML 10 ML SYRINGE ONE (14:56)
[2024-05-31] MEDS ORDERED: TICAGRELOR 90 MG TABLET ONE (15:04)
[2024-05-31] MEDS ORDERED: Acetaminophen 500 MG TAB ONE (18:44)
[2024-05-31] MEDS: Acetaminophen 325 MG TAB PO PRN (18:50)
[2024-05-31] MEDS: Atorvastatin Calcium 40 MG TAB PO SCH (20:50)
[2024-05-31] MEDS: Lisinopril 2.5 MG TAB PO SCH (20:50)
[2024-06-01] MEDS: diphenhydrAMINE 25 MG CAP PO SCH (01:17)
[2024-06-01 05:28] LABS: #Basophils 0.07 10x3/uL (0.0-0.2); %Basophils 0.7 % (0.0-1.0); %Eosinophils 2.1 % (0.0-10.0); %Lymphocytes 23.3 % (21.0-51.0); %Neutrophils 63.7 % (42.0-75.0); Hematocrit 39.6 % (42.0-52.0); Hemoglobin 13.8 g/dL (14.0-18.0); Mean Corpuscular HGB CONC 34.8 g/dL (32.0-36.0); Mean Corpuscular Hemoglobin 32.7 pg (27.0-31.0); Mean Corpuscular Volume 93.8 fL (78.0-98.0); Mean Platelet Volume 10.7 fL (7.4-10.4); Platelet Count 224 10x3/uL (130-400); RBC Distribution Width 14.4 % (11.5-14.5); Red Blood Cell (RBC) Count 4.22 mill/uL (4.70-6.10)
[2024-06-01 05:53] LABS: ALT (SGPT) 24 U/L (8-55); AST (SGOT) 27 U/L (5-34); Albumin 3.5 g/dL (3.4-4.8); Alkaline Phosphatase 70 U/L (40-110); Anion Gap 14 mmol/L (10-20); BUN (Urea Nitrogen) 20 mg/dL (8.4-25.7); Bilirubin, Total 0.8 mg/dL (0.2-1.2); Calc. Creatinine Clearance 67 mL/min (70-130); Calcium 8.8 mg/dL (7.8-10.44); Carbon Dioxide 18 mmol/L (23-31); Chloride 110 mmol/L (98-107); Estimated GFR 70; Globulin 2.6 g/dL (2.4-3.5); Glucose 67 mg/dL (83-110); Potassium 3.8 mmol/L (3.5-5.1); Protein, Total 6.1 g/dL (5.8-8.1); Sodium 138 mmol/L (136-145)
[2024-06-01 11:36] VITALS: BP 120/63; TEMP 97.9
== END 2024-06-01 13:18 | disposition home or self-care (01) | DRG 322 ==
LOC: ERS 21:37 → 2NO 22:24 → OBSVTOIN 05-31 15:30
PROVIDERS: ADMIT Internal Medicine; ATTEND Family Medicine
PROC: 027034Z Dilation of Coronary Artery, One Artery with Drug-eluting Intraluminal Device, Percutaneous Approach (ICD-10-PCS; principal; 2024-05-31)
PROC: 4A023N7 Measurement of Cardiac Sampling and Pressure, Left Heart, Percutaneous Approach (ICD-10-PCS; 2024-05-31)
PROC: B2111ZZ Fluoroscopy of Multiple Coronary Arteries using Low Osmolar Contrast (ICD-10-PCS; 2024-05-31)
DX: R07.9 Chest pain, unspecified (principal); I50.32 Chronic diastolic (congestive) heart failure; N17.9 Acute kidney failure, unspecified; I13.0 Hypertensive heart and chronic kidney disease with heart failure and stage 1 through stage 4 chronic kidney disease, or unspecified chronic kidney disease; Z94.84 Stem cells transplant status; I25.10 Atherosclerotic heart disease of native coronary artery without angina pectoris; E78.5 Hyperlipidemia, unspecified; N18.30 Chronic kidney disease, stage 3 unspecified; N40.0 Benign prostatic hyperplasia without lower urinary tract symptoms; I25.2 Old myocardial infarction; Z86.711 Personal history of pulmonary embolism; Z86.718 Personal history of other venous thrombosis and embolism; Z88.1 Allergy status to other antibiotic agents; Z91.048 Other nonmedicinal substance allergy status; Z79.899 Other long term (current) drug therapy; Z79.82 Long term (current) use of aspirin; Z87.891 Personal history of nicotine dependence; Z95.5 Presence of coronary angioplasty implant and graft; Z86.73 Personal history of transient ischemic attack (TIA), and cerebral infarction without residual deficits; Z85.46 Personal history of malignant neoplasm of prostate; Z85.72 Personal history of non-Hodgkin lymphomas; Z88.6 Allergy status to analgesic agent
CPT/HCPCS: 36415; 80048; 80053; 82805; 84484; 85025; 85347; 92928; 93005; 93010; 93458; 97139; 99152; 99153; 99285; C1769; C1874; C1887; C9600; J1644; J1650; J2250; J3010; Q9967